=== PATIENT | female | born 1970 ===

== ENCOUNTER 2023-05-30 05:30 | Day surgery (SDC) | payer OTHER ==
[~2023-05-30] VITALS: Ht 157.5 cm; Wt 98.0 kg
[~2023-05-30 05:30] MED LIST: LOSARTAN-HCTZ1 EACH PO; MAXIMUM ENERGY1 EACH PO; METFORMIN HCL500 M3 PO; ZOCOR40 MG PO
[2023-05-30] MEDS ORDERED: PERCOCET 5-3251 EACH PO (08:24)
[2023-05-30] MEDS ORDERED: RECTICARE30 GM TOP (08:25)
== END 2023-05-30 15:45 | disposition home or self-care (01) ==
LOC: CIR.AMB 05:30
PROVIDERS: ATTEND Surgery
DX: K62.0 Anal polyp (principal); K62.1 Rectal polyp; D12.9 Benign neoplasm of anus and anal canal; R19.5 Other fecal abnormalities; Z20.822 Contact with and (suspected) exposure to COVID-19; E78.5 Hyperlipidemia, unspecified; I10 Essential (primary) hypertension; E11.9 Type 2 diabetes mellitus without complications